=== PATIENT | female | born 1945 | race Caucasian/White ===

== ENCOUNTER → 2019-12-10 | Emergency (ER) | payer MEDICARE, OTHER ==
[~2019-12-10] VITALS: Ht 157.5 cm; Wt 56.0 kg
[~2019-12-10] MED LIST: K, MAG and/or Phos replacement - Verify level? MC SCH; LORazepam 2 mg/ml vial ONE; Neutra Phos packet PO PRN; acetaminophen 325mg tablet PO PRN; epiNEPHrine 0.1mg/ml 10ml syringe ONE; etomidate 2mg/ml inj. ONE; heparin 10,000 units/1 ML INJ IV PRN; heparin 25,000 UNIT/250ml bag 250 ML IV SCH; magnesium 2GM in 50ml NS 50 ML IV PRN; magnesium 4gm in 100ml NS 100 ML IV PRN; magnesium Cl slow-release 64mg tablet PO PRN; metoprolol tartrate 1mg/ml inj IV STA; morphine 2 MG/ML inj. syringe IV PRN; morphine 4 MG/ML inj SYRINge IV PRN; ondansetron/PF 4mg/2ml inj IV PRN; pantoprazole 40 MG vial IV SCH; potassium CL 10mEq/100ml bag 100 ML IV PRN; potassium Cl 20 mEq SR tablet PO PRN; rocuronium 10mg/ml inj IV ONE; sodium phosphate inj. 15 MMOL in dextrose 5%-water 245 ML IV PRN; sodium phosphate inj. 30 MMOL in dextrose 5%-water 240 ML IV PRN
[2019-12-10] MEDS: nitroGLYCERIN-Tridil 50MG/D5W 250 ML IV SCH ×2 (10:19→10:46)
[2019-12-10 10:21] LABS: BASOPHILS # (AUTO) 0.1 X10'3 (0-0.2); BASOPHILS % (AUTO) 0.7 % (0-1); EOSINOPHILS % (AUTO) 0 % (0-6); HEMATOCRIT 37.5 % (35.0-45.0); HEMOGLOBIN 12.5 g/dl (12.0-16.0); MEAN CORPUSCULAR HEMOGLOBIN 29.6 PG (27.0-31.0); MEAN CORPUSCULAR HGB CONC 33.2 g/dL (33.0-36.5); MEAN CORPUSCULAR VOLUME 89.1 FL (78-98); MEAN PLATELET VOLUME 7.5 FL (7.4-10.4); MONOCYTES % (AUTO) 9.9 % (2-12); NEUTROPHILS # (AUTO) 15.9 X10'3 (1.8-7.7); NEUTROPHILS % (AUTO) 79.4 % (42-75); PLATELET COUNT 338 X10'3 (140-440); RED BLOOD COUNT 4.21 X10'6 (4.20-5.60); RED CELL DISTRIBUTION WIDTH 12.5 % (11.5-14.5)
--- NOTE | 2019-12-10 10:24 | NUR ---
Denies chest pain at this time.
--- NOTE | 2019-12-10 10:31 | NUR ---
left sided chest pain 5/10,patient started on nitro drip 1.5ml/hour.
[2019-12-10 10:34] LABS: PARTIAL THROMBOPLASTIN TIME 62 SECONDS (22-32)
[2019-12-10 10:38] LABS: ALANINE AMINOTRANSFERASE 64 U/L (12-78); ALBUMIN 3.2 G/DL (3.4-5.0); ALBUMIN/GLOBULIN RATIO 0.9 (1.1-1.5); ALKALINE PHOSPHATASE 153 IU/L (46-116); ANION GAP 7 (8-16); ASPARTATE AMINO TRANSFERASE 263 U/L (10-37); BILIRUBIN,TOTAL 0.9 MG/DL (0.1-1.0); BLOOD UREA NITROGEN 18 MG/DL (7-18); BUN/CREATININE RATIO 18.4 (6.6-38.0); CALCIUM 8.4 MG/DL (8.5-10.1); CHLORIDE 101 MMOL/L (99-107); CREATININE 0.98 MG/DL (0.40-0.90); GLUCOSE 126 MG/DL (70-104); POTASSIUM 3.6 MMOL/L (3.5-5.1); SODIUM 138 MMOL/L (135-145); TOTAL PROTEIN 6.9 G/DL (6.4-8.2); eGFR 56 ML/MIN
[2019-12-10 10:46] VITALS: BP 153/90
--- NOTE | 2019-12-10 10:46 | NUR ---
patient still c/o 5/10 cp,Dr. Wakefield made aware,ok'd to increase nitro per protocol.
--- NOTE | 2019-12-10 10:50 | NUR ---
patient noted with tonic clonic seizure,ativan 1mg IVP given.
--- NOTE | 2019-12-10 11:18 | NUR ---
please refer to code sheet for information about details on code.
--- NOTE | 2019-12-10 12:39 | NUR ---
called [facility] spoke to Yuridia reference #[id number].
--- NOTE | 2019-12-10 12:42 | NUR ---
called [facility] spoke to Heri, will poultry picker patient around 1330.
--- NOTE | 2019-12-10 12:58 | NUR ---
called [phone].Made family aware that mortuary was contacted,said they are on the way to see patient.Called luis/migue and danyell made aware to hold off transport since family wants to see patient first.
--- NOTE | 2019-12-10 13:08 | NUR ---
Called [facility] office spoke to Justin Yepez.
--- NOTE | 2019-12-10 13:49 | NUR ---
Jey/spouse called,ok'd to take patient to mortuary.Given him contact information of [facility].
--- NOTE | 2019-12-10 14:02 | NUR ---
[facility] here to transport patient to [facility].
== END | disposition home or self-care (01) ==
LOC: ER 09:54 → CMPBEDREQ 12-13 19:43
DX: I21.3 ST elevation (STEMI) myocardial infarction of unspecified site (principal); R56.9 Unspecified convulsions; R09.2 Respiratory arrest; I46.9 Cardiac arrest, cause unspecified; R11.0 Nausea; Z86.73 Personal history of transient ischemic attack (TIA), and cerebral infarction without residual deficits
CPT/HCPCS: 31500; 71045; 80053; 84484; 85025; 85610; 85730; 92950; 93005; 96365; 96375; 99291; J0171; J1644; J2060; 94760; 99285; J3490